=== PATIENT | female | born 1950 | race Caucasian/White ===

== ENCOUNTER 2018-01-06 16:05 | Emergency (ER) | payer MEDICARE, OTHER ==
[~2018-01-06] VITALS: Ht 167.6 cm; Wt 65.8 kg
[~2018-01-06 16:05] MED LIST: B COMPLETE1 EACH PO; B-121000 MCG PO; CARAFATE1 GM PO; FISH OIL 1,2001 EAC2; GARLIC OIL1000 MG; LOPERAMIDE2 MG PO; POTASSIUM GLUCO2 MEQ PO; PRAVASTATIN SOD80 MG PO; PROTONIX20 MG PO; PROZAC20 MG PO; TOPROL XL25 MG PO; VITAMIN C1000 M1 PO; VITAMIN D400 UNIT PO; VITAMIN E1000 UNI1; [UNRECOGNIZED DRUG - OTHER]
[2018-01-06] MEDS ORDERED: HYDROCODONE/APAP 10MG-325MG TAB PO ONE (16:30)
[2018-01-06] MEDS ORDERED: ONDANSETRON HCL 4 MG ORAL DISINTEGRATING TAB PO ONE (16:30)
[2018-01-06] MEDS ORDERED: TRAMADOL HCL 50 MG TAB PO ONE (16:30)
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
[2018-01-11] MEDS ORDERED: SYNTHROID100 MCG PO (11:09)
[2018-01-11] MEDS ORDERED: ASPIRIN325 MG PO (11:10)
== END 2018-01-06 18:52 | disposition home or self-care (01) ==
LOC: ER 16:05
DX: S52.515A Nondisplaced fracture of left radial styloid process, initial encounter for closed fracture (principal); V43.62XA Car passenger injured in collision with other type car in traffic accident, initial encounter; Y92.488 Other paved roadways as the place of occurrence of the external cause; I10 Essential (primary) hypertension; E03.9 Hypothyroidism, unspecified; K21.9 Gastro-esophageal reflux disease without esophagitis
CPT/HCPCS: 99284

== ENCOUNTER → 2018-01-12 | Day surgery (SDC) | payer OTHER, MEDICARE ==
[2018-01-11 11:24] LABS: BASOPHILS # (AUTO) 0.1 (0.0-0.1); EOSINOPHILS # (AUTO) 0.3 (0.0-0.4); HEMATOCRIT 38.8 % (34.2-44.1); HEMOGLOBIN 12.8 g/dL (12.0-16.0); LYMPHOCYTES # (AUTO) 2.4 (1.0-3.2); LYMPHOCYTES % 33.6 % (18.0-39.1); MEAN CORPUSCULAR HEMOGLOBIN 31.7 pg (28-32); MONOCYTES # (AUTO) 0.5 (0.2-0.8); MONOCYTES % 7.4 % (4.4-11.3); NEUTROPHILS # (AUTO) 3.7 (2.1-6.9); NEUTROPHILS % 53.6 % (38.7-80.0); PLATELET COUNT 226 x10e3/uL (140-360); RED BLOOD COUNT 4.04 x10e6/uL (3.6-5.1); RED CELL DISTRIBUTION WIDTH 12.4 % (11.7-14.4)
--- NOTE | 2018-01-11 16:47 | Diagnostic Imaging Report ---
EXAM: CHEST 2 VIEWS, PA and lateral DATE: 01/11/2018 11:02 AM Time stamp on exam: 11:06 AM INDICATION: Preoperative COMPARISON: None FINDINGS: LINES/TUBES: None LUNGS: No consolidations or edema. The lungs are hyperexpanded compatible with COPD. Basilar calcified granulomas noted on the lateral view. PLEURA: No effusions or pneumothorax. HEART AND MEDIASTINUM: Normal size and contour. Thoracic tortuosity and calcification. BONES AND SOFT TISSUES: Deformity of the proximal one third of the left humerus. IMPRESSION: No acute thoracic abnormality. Signed by: Dr. Reymundo Sena DO on 01/11/2018 4:43 PM
[~2018-01-12] MED LIST changes: +ASPIRIN325 MG PO; +BUPIVACAINE HCL 0.5% INJ 30 ML VIAL INJ ONE; +CEFAZOLIN SOD 2 GM/D5W 50ML 50 ML IV ONE; +DEXAMETHASONE SOD PHOS INJ 4 MG/ML VIAL ONE; +FENTANYL CITRATE/PF 100MCG/2 ML INJ ONE; +KETOROLAC TROMETHAMINE 30 MG/ML VIAL ONE; +LIDOCAINE HCL 2% LOCAL INJ 5 ML SDV VIAL INJ ONE; +MIDAZOLAM HCL 2 MG/2 ML VIAL ONE; +ONDANSETRON HCL INJ 2 MG/ML VIAL ONE; +PROPOFOL IV EMULSION 10 MG/ML 20 ML VIAL ONE; +SEVOFLURANE INHAL SOLN 250 ML PEN BTL ONE; +SYNTHROID100 MCG PO
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
[2018-01-12 15:20] VITALS: BP 136/68
--- NOTE | 2018-01-12 17:27 | Operative Report ---
DATE OF PROCEDURE: January 12, 2018 PREOPERATIVE DIAGNOSIS: Displaced left distal radius fracture. POSTOPERATIVE DIAGNOSIS: Displaced left distal radius fracture. PROCEDURE PERFORMED: The patient underwent a closed reduction and percutaneous pinning of the left distal radius fracture. BEAN SNAPPER: Suni Feldman. ANESTHESIA: General endotracheal intubation anesthesia. INTRAVENOUS FLUIDS: As per the anesthesia record. DESCRIPTION OF PROCEDURE: Ms. Shea was taken to the operating room and placed in the supine position on the operating table. Following the induction of general anesthesia as well as endotracheal intubation, the patient's left upper extremity was examined under anesthesia. She was found to have a gross deformity at the level of the left wrist joint. Fluoroscopic evaluation of the wrist joint demonstrated a displaced and dorsally angulated distal radius fracture. The patient's upper extremity was prepped and draped in standard surgical fashion. The case was begun by manipulating the wrist in a closed fashion. This resulted in acceptable realignment of the patient's injury. Two 0.062 K-wires were then inserted from distal to proximal, transfixing the fracture in its reduced position. The position of those K-wires as well as the reduction of the fracture site was then assessed using fluoroscopy and found to be appropriate. The pin sites were dressed sterilely, and the patient was provided a sugar-tong splint. The patient was then awakened and taken to the postanesthesia care unit in stable condition. Job#: [id number] EV
== END | disposition home or self-care (01) ==
LOC: OR 09:39
PROVIDERS: ATTEND Specialist
DX: S52.552A Other extraarticular fracture of lower end of left radius, initial encounter for closed fracture (principal); I10 Essential (primary) hypertension; V59.88XA Occupant (driver) (passenger) of pick-up truck or van injured in other specified transport accidents, initial encounter; Y92.413 State road as the place of occurrence of the external cause; Z88.6 Allergy status to analgesic agent; Z88.0 Allergy status to penicillin; Z91.018 Allergy to other foods; Z01.810 Encounter for preprocedural cardiovascular examination; Z01.812 Encounter for preprocedural laboratory examination; Z79.82 Long term (current) use of aspirin
CPT/HCPCS: 25606; 36415; 71046; 85025; J0690; J1100; J1885; J2001; J2250; J2405; J2704; 76000; C1713

== ENCOUNTER 2018-04-06 09:59 | Outpatient (RCR) | payer MEDICARE ==
[~2018-04-06 09:59] MED LIST changes: -BUPIVACAINE HCL 0.5% INJ 30 ML VIAL INJ ONE; -CEFAZOLIN SOD 2 GM/D5W 50ML 50 ML IV ONE; -DEXAMETHASONE SOD PHOS INJ 4 MG/ML VIAL ONE; -FENTANYL CITRATE/PF 100MCG/2 ML INJ ONE; -KETOROLAC TROMETHAMINE 30 MG/ML VIAL ONE; -LIDOCAINE HCL 2% LOCAL INJ 5 ML SDV VIAL INJ ONE; -MIDAZOLAM HCL 2 MG/2 ML VIAL ONE; -ONDANSETRON HCL INJ 2 MG/ML VIAL ONE; -PROPOFOL IV EMULSION 10 MG/ML 20 ML VIAL ONE; -SEVOFLURANE INHAL SOLN 250 ML PEN BTL ONE
== END 2018-04-14 ==
LOC: OT 09:59
PROVIDERS: ATTEND Specialist
DX: S52.502D Unspecified fracture of the lower end of left radius, subsequent encounter for closed fracture with routine healing (principal); M25.532 Pain in left wrist; M25.632 Stiffness of left wrist, not elsewhere classified; R53.1 Weakness
CPT/HCPCS: 97022 ×5; 97110 ×6; 97139; 97165; G8987; G8988

== ENCOUNTER → 2019-06-19 | Outpatient (CLI) | payer MEDICARE ==
[~2019-06-19] MED LIST changes: +CALCIUM CITRAT200 MG PO; +CORICIDIN COLD1 EACH PO; +SIMVASTATIN40 MG PO; +ULTRAM50 MG PO; +ZINC SULFATE220 MG PO
--- NOTE | 2019-06-19 11:09 | Diagnostic Imaging Report ---
EXAM: CT left shoulder WITHOUT contrast INDICATION: Shoulder pain. Displaced fracture of surgical neck of left humerus. Nonunion. COMPARISON: March 23, 2019 TECHNIQUE: Left shoulder was scanned utilizing a multidetector helical scanner without administration of IV contrast. Absence of intravenous contrast decreases sensitivity for detection of focal lesions and vascular pathology. Coronal and sagittal reformations were obtained. Routine protocol was performed. IV CONTRAST: None ORAL CONTRAST: None COMPLICATIONS: None RADIATION DOSE: Total DLP: 290 mGy*cm Estimated effective dose: (DLP x 0.015 x size factor) mSv CTDIvol has been reviewed. It is below the limits set by the Radiation Protocol Committee (RPC). Dose modulation, iterative reconstruction, and/or weight based adjustment of the mA/kV was utilized to reduce the radiation dose to as low as reasonably achievable. FINDINGS: LINES and TUBES: None. Incompletely healed comminuted mildly displaced proximal left humerus shaft fracture. New bone formation is seen on axial series 500 image 82 along the inferior margin of the fracture line. The fracture line is still visible. There is mild adjacent soft tissue swelling. Scattered degenerative changes are seen in the shoulder joint most pronounced at the glenohumeral joint with joint space loss, subchondral sclerosis and subchondral cystic change and peripheral osteophytosis. Less severe degenerative changes are seen at the acromioclavicular joint. Scattered degenerative change about the remaining visualized osseous structures. No osseous erosion. No radiopaque foreign body. The previously seen nonspecific 8.5 mm nodular density in the peripheral left lower lung was not imaged on today's exam. Impression: Incompletely healed comminuted mildly displaced proximal left humerus shaft fracture. The previously seen nonspecific 8.5 mm nodular density in the peripheral left lower lung was not imaged on today's exam. CT scan of the chest may be of benefit. Signed by: Dr. Vishnu Wilde M.D. on 06/19/2019 11:06 AM
== END ==
LOC: CT 08:28
PROVIDERS: ATTEND Specialist
DX: S42.222K 2-part displaced fracture of surgical neck of left humerus, subsequent encounter for fracture with nonunion (principal)

== ENCOUNTER → 2019-06-28 | Day surgery (SDC) | payer MEDICARE ==
[~2019-06-28] MED LIST changes: +ACETAMINOPHEN 1000 MG/100 ML IV PRN; +BACITRACIN 50,000 UNIT VIAL ONE; +BUPIVACAINE 0.5%/EPI 30 ML SDV INJ ONE; +CEFAZOLIN SOD 1 GM/NS 50ML 100 ML IV ONE; +CEFAZOLIN SOD 1 GM/NS 50ML 50 ML IV SCH; +DEXAMETHASONE SOD PHOS INJ 4 MG/ML VIAL ONE; +EPHEDRINE SULFATE INJ 50 MG/ML VIAL ONE; +EPINEPHRINE HCL 1:1000 1ML 1 MG/ML AMP ONE; +FENTANYL CITRATE/PF 100MCG/2 ML INJ ONE; +HYDROMORPHONE 0.2MG/ML-SOD CHL 30ML PCA SYRINGE IV PRN; +LIDOCAINE HCL 2% LOCAL 20 ML VIAL ONE; +LIDOCAINE HCL 2% LOCAL INJ 5 ML SDV VIAL INJ ONE; +MEPIVACAINE HCL 2% 20 ML VIAL ONE; +MIDAZOLAM HCL 2 MG/2 ML VIAL ONE; +NALOXONE HCL INJ 0.4 MG/ML AMP IV PRN; +ONDANSETRON HCL INJ 2MG/ML 2ML 2 MG/ML VIAL IV PRN; +ONDANSETRON HCL INJ 2MG/ML 2ML 2 MG/ML VIAL ONE; +PHENYLEPHRINE HCL 1% 10 MG/ML VIAL ONE; +PROPOFOL IV EMULSION 10 MG/ML 20 ML VIAL ONE; +SEVOFLURANE INHAL SOLN 250 ML PEN BTL ONE; +SODIUM CHLORIDE 0.9% 1000ML 1,000 ML IV SCH
--- OUTSIDE RECORDS SUMMARY | 2019-06-28 05:31 | XMS REPORT | Summary of Care ---
Author Author [facility] - Health Organization [facility] - Health Address Unknown Phone Unavailable Care Team Providers Care Supervisory Air Intercept Controller Name Role Phone Modesto Caba PCP Reason for Visit * Reason Comments LAB WORK Encounter Details Care Team Description Date Type Department Nito Conway, [facility] [address] [place] [address] Draw, Clc-Bls Lab Postoperative hypothyroidism 04/11/2019 Extrusion Technician [facility] Clinical Visit Laboratory, [address] [address] Allergies Comments Active Allergy Reactions Severity Noted Date [place] Oil Diarrhea 05/30/2018 Codeine Palpitations 05/30/2018 Morphine Nausea and/or 05/30/2018 Vomiting documented as of this encounter (statuses as of 04/11/2019) Medications End Date Status Medication Sig Dispensed Refills Start Date Active pantoprazole (PROTONIX) Take 40 mg by 0 40 mg EC tablet mouth 2 (two) times daily. Active ergocalciferol, vitamin Take by 0 D2, (VITAMIN D ORAL) mouth. Active metoprolol succinate XL Take 50 mg by 0 50 mg 24 hr tablet mouth daily. Active FLUoxetine 20 mg tablet Take 40 mg by 0 mouth daily. Active MULTIVITAMIN ORAL Take by 0 mouth. Active LEVOTHYROXINE 100 mcg TAKE 1 TABLET 30 tablet 0 tabletIndications: BY MOUTH ONCE 9 Postoperative DAILY IN THE hypothyroidism MORNING Active simvastatin 40 mg tablet Take 40 mg by 0 mouth at bedtime. Active calcium citrate/vitamin Take by 0 D3 (CALCIUM CITRATE + D mouth. ORAL) Active ASPIRIN ORAL Take by 0 mouth. documented as of this encounter (statuses as of 04/11/2019) Active Problems Problem Noted Date Postoperative hypothyroidism 05/30/2018 History of thyroid cancer 05/30/2018 Pure hypercholesterolemia 05/30/2018 Osteopenia of both hips 05/30/2018 documented as of this encounter (statuses as of 04/11/2019) Social History Date Tobacco Use Types Packs/Day Years Used Never Smoker Smokeless Tobacco: Never Used Drinks/Week oz/Week Comments Alcohol Use No Sex Assigned at Date Recorded Not on file Industry Job Start Date Occupation Not on file Not on file Not on file Travel End Travel History Travel Start No recent travel history available. documented as of this encounter Last Filed Vital Signs Not on filedocumented in this encounter Plan of Treatment Date/Time Name Type Priority Associated Diagnoses 04/11/2019 10:13 AM MANAGER PHARMACEUTICAL THYROID STIMULATING LAB Routine Postoperative HORMONE hypothyroidism Health Maintenance Due Date Last Done Comments HEPATITIS C (HCV) SCREEN 1950 DTaP,Tdap,and Td Vaccines 1962 (1 - Tdap) Breast Cancer Screening 1991 (MAMMOGRAM) COLONOSCOPY 2001 Zoster Recombinant 2001 Vaccine (SHINGRIX) (1 of 2) Medicare Wellness Visit 02/19/2016 PNEUMOCOCCAL VACCINES 65+ 02/19/2016 (1 of 2 - PCV13) INFLUENZA VACCINE (#1) 2018 Osteoporosis Screening 06/08/2028 06/08/2018 documented as of this encounter Results Not on filedocumented in this encounter Visit Diagnoses Diagnosis Postoperative hypothyroidism Postsurgical hypothyroidism documented in this encounter Insurance Type Payer Benefit Subscriber ID Effective Phone Address Plan / Dates Group Medicare Adv O [facility] [id number] 2018-P MANAGED MEDICARE [facility]ALTHCARE [facility] H[facility] documented as of this encounter
--- OUTSIDE RECORDS SUMMARY | 2019-06-28 05:31 | XMS REPORT | Summary of Care ---
Author Author [facility] - Health Organization [facility] - Health Address Unknown Phone Unavailable Care Team Providers Care Therapeutic Recreation Director Name Role Phone Modesto Caba PCP Reason for Visit * Reason Comments LAB Encounter Details Care Team Description Date Type Department Nito Conway, [facility] [address] [place] [address] LAB 04/13/2019 Refill [facility] Endocrinology, [address] [address] Allergies Comments Active Allergy Reactions Severity Noted Date [place] Oil Diarrhea 05/30/2018 Codeine Palpitations 05/30/2018 Morphine Nausea and/or 05/30/2018 Vomiting documented as of this encounter (statuses as of 04/13/2019) Medications End Date Status Medication Sig Dispensed [...] MULTIVITAMIN ORAL Take by 0 mouth. Active simvastatin 40 mg tablet Take 40 mg by 0 mouth at bedtime. Active calcium citrate/vitamin Take by 0 D3 (CALCIUM CITRATE + D mouth. ORAL) Active ASPIRIN ORAL Take by 0 mouth. Active levothyroxine 112 mcg Take 1 tablet 30 tablet 2 tabletIndications: by mouth 0 Postoperative every hypothyroidism morning. 04/13/2019 Discontinued (Dose adjustment) LEVOTHYROXINE 100 mcg TAKE 1 TABLET 30 tablet 0 tabletIndications: BY MOUTH ONCE 9 Postoperative DAILY IN THE hypothyroidism MORNING documented as of this encounter (statuses as of 04/13/2019) Active Problems Problem Noted Date Postoperative hypothyroidism 05/30/2018 History of thyroid cancer 05/30/2018 Pure hypercholesterolemia 05/30/2018 Osteopenia of both hips 05/30/2018 documented as of this encounter (statuses as of 04/13/2019) Social History Date Tobacco Use Types Packs/Day [...] filedocumented in this encounter Plan of Treatment Care Team Description Date Type Specialty Nito Conway, [facility] [address] [place] [phone] 10/13/2019 Office Visit Endocrinology Diabetes & Metabolism Order Schedule Name Type Priority Associated Diagnoses Expected: 05/13/2019, Expires: 08/12/2019 THYROID STIMULATING LAB Routine Postoperative HORMONE hypothyroidism [...] this encounter Visit Diagnoses Diagnosis Postoperative hypothyroidism - Primary Postsurgical hypothyroidism documented in this encounter Insurance Type Payer Benefit Subscriber ID Effective Phone Address Plan / Dates Group Medicare Adv HMO [employer] [facility] [id number] 2018-P MANAGED MEDICARE HEALTHCARE resent MEDICARE ADV HMO documented as of this encounter
--- OUTSIDE RECORDS SUMMARY | 2019-06-28 05:31 | XMS REPORT | Summary of Care ---
Author Author [facility] - Health Organization [facility] - Health Address Unknown Phone Unavailable Care Team Providers Care Flat Sheet Maker Name Role Phone Modesto Caba PCP Reason for Visit * Reason Comments Follow-up pt confirm all meds and pharmacy Thyroid Problem Encounter Details Care Team Description Date Type Department Emily Menendez MD [address] [place] [address] Nito Conway, [facility] [address] [place] [address] Postoperative hypothyroidism (Primary Dx); History of thyroid cancer 04/11/2019 Office Visit [facility] Endocrinology, [address] [address] Allergies Comments Active Allergy Reactions Severity Noted Date [place] Oil Diarrhea 05/30/2018 Codeine Palpitations 05/30/2018 Morphine [...] Active ASPIRIN ORAL Take by 0 mouth. 04/11/2019 Discontinued (Dose adjustment) pravastatin 80 mg Take 1 tablet 90 tablet 1 tabletIndications: Pure by mouth at 9 hypercholesterolemia bedtime. documented as of this encounter (statuses as [...] of this encounter Last Filed Vital Signs Reading Time Taken Comments Vital Sign 133/83 04/11/2019 9:36 AM PLUMBER PIPE FITTING Blood Pressure 75 04/11/2019 9:36 AM PLUMBER PIPE [employer]TING Pulse - - Temperature - - Respiratory Rate 98% 04/11/2019 9:36 AM PLUMBER PIPE FITTING Oxygen Saturation - - Inhaled Oxygen Concentration 71.2 kg (157 lb) 04/11/2019 9:36 AM PLUMBER PIPE FITTING Weight 164.5 cm (5' 4.75") 04/11/2019 9:36 AM PLUMBER PIPE FITTING Height 26.33 04/11/2019 9:36 AM PLUMBER PIPE FITTING Body Mass Index documented in this encounter Progress Notes * Nito Conway, CHERYL - 04/11/2019 9:30 AM PLUMBER PIPE FITTING Cc: Chief Complaint Patient presents with Follow-up pt confirm all meds and pharmacy Thyroid Problem HPI Katja Shea is a 69 year old female here for follow up Hypothyroidism:s/p thyroidectomy in 1997 for multinodular goiter.On levothyroxi ne 100mcg daily,ran out of it 2 weeks back and she started taking levothyroxine 112mcg from her previous prescription. reports compliance. Denies any fatigue, hair loss, brittle nails, or decreased perspiration. Allergies Katja is allergic to castor oil; codeine; and morphine. Medications Outpatient Medications Prior to Visit Medication Sig Dispense Refill ASPIRIN ORAL Take by mouth. calcium citrate/vitamin D3 (CALCIUM CITRATE + D ORAL) Take by mouth. simvastatin 40 mg tablet Take 40 mg by mouth at bedtime. LEVOTHYROXINE 100 mcg tablet TAKE 1 TABLET BY MOUTH ONCE DAILY IN THE MORNIN G 30 tablet 0 ergocalciferol, vitamin D2, (VITAMIN D ORAL) Take by mouth. FLUoxetine 20 mg tablet Take 40 mg by mouth daily. metoprolol succinate XL 50 mg 24 hr tablet Take 50 mg by mouth daily. MULTIVITAMIN ORAL Take by mouth. pantoprazole (PROTONIX) 40 mg EC tablet Take 40 mg by mouth 2 (two) times da alexander. pravastatin 80 mg tablet Take 1 tablet by mouth at bedtime. 90 tablet 1 No facility-administered medications prior to visit. Histories Past Medical History: Diagnosis Date Cancer Depression Hyperlipidemia Hypertension Past Surgical History: Procedure Laterality Date HERNIA REPAIR HYSTERECTOMY THYROIDECTOMY TONSILLECTOMY Social History Socioeconomic History Marital status: Spouse name: Not on file Number of children: Not on file Years of education: Not on file Highest education level: Not on file Occupational History Not on file Social Needs Financial resource strain: Not on file Food insecurity: Worry: Not on file Inability: Not on file Transportation needs: Medical: Not on file Non-medical: Not on file Tobacco Use Smoking status: Never Smoker Smokeless tobacco: Never Used Substance and Sexual Activity Alcohol use: No Drug use: No Sexual activity: Not on file Lifestyle Physical activity: Days per week: Not on file Minutes per session: Not on file Stress: Not on file Relationships Social connections: Talks on phone: Not on file Gets together: Not on file Attends nondenominational service: Not on file Active member of club or organization: Not on file Attends meetings of clubs or organizations: Not on file Relationship status: Not on file Intimate partner violence: Fear of current or ex partner: Not on file Emotionally abused: Not on file Physically abused: Not on file Forced sexual activity: Not on file Other Topics Concern Not on file Social History Narrative Not on file History reviewed. No pertinent family history. Review of Systems Constitutional:negative. Eyes: no recent changes Neck: negative Cardiovascular: negative. Respiratory: negative Genitourinary: negative Neuro: negative Endocrine: negative. Vital Signs BP 133/83 (BP Location: Right arm, Patient Position: Sitting, BP CUFF SIZE: Adul t Large) | Pulse 75 | Ht 5' 4.75" (1.645 m) | Wt 157 lb (71.2 kg) | SpO2 98% | BMI 26.33 kg/m Physical Exam Constitutional: oriented to person, place, and time.appears well-developed and well-nourished. Eyes: Pupils are equal, round, and reactive to light. Conjunctivae and EOM are n ormal. No scleral icterus. Lymph: No JVD present. No tracheal deviation present. No thyromegaly present. Cardiovascular: Normal rate, regular rhythm, normal heart sounds and intact dist al pulses. No murmur heard. Pulmonary/Chest: Effort normal and breath sounds normal. No respiratory distress . no wheezes, no rales Assessment/Plan Postoperative hypothyroidism (primary encounter diagnosis) Plan: THYROID STIMULATING HORMONE - will refill levothyroxine depending on lab results from today - f/u in 6 months Appropriate plan of care, desired health behaviors, goals and medications discus sed with patient and educational resources and self-management tools provided, a s applicable. Patient/family/guardian voice understanding. Barriers to adherence: none Ability to manage care: Good As necessary, prescribed medications and potential significant medication side e ffects or medication interactions were discussed with the patient and pt will le t me know if any occur. Call or return to clinic prn if these symptoms worsen or fail to improve as anti cipated. Call or report to ER if symptoms should symptoms progress or worsen. The patient indicates understanding of these issues and agrees with the plan. AVS printed and given to patient/family/guardian . BER PIPE FITTING documented in this encounter Plan of Treatment Care Team Description Date Type Specialty Draw, Clc-Bls Lab 04/11/2019 Travel Pt Phlebotomy Visit Order Schedule Name Type Priority Associated Diagnoses Expected: 04/11/2019, Expires: 05/12/2019 THYROID STIMULATING LAB Routine Postoperative HORMONE hypothyroidism [...] Diagnosis Postoperative hypothyroidism - Primary Postsurgical hypothyroidism History of thyroid cancer Personal history of malignant neoplasm of thyroid documented in this encounter Insurance Type Payer Benefit Subscriber ID Effective Phone Address Plan / Dates Group Medicare Adv O [employer] [facility] [id number] 2018-P MANAGED MEDICARE HEALTHCARE resent MEDICARE ADV O documented as of this encounter
--- OUTSIDE RECORDS SUMMARY | 2019-06-28 05:31 | XMS REPORT | Summary of Care ---
Author Author [facility] - Health Organization [facility] - Health Address Unknown Phone Unavailable Care Team Providers Care Seafood Fisherman Name Role Phone Modesto Caba PCP Reason for Visit * Reason Comments LAB WORK Encounter Details Care Team Description Date Type Department Nito Conway, [facility] [address] [place] [address] Draw, Clc-Bls Lab Postoperative hypothyroidism 05/29/2019 Non Categorical Preschool Teacher [facility] Clinical Visit Laboratory, [address] [phone] Allergies Comments Active Allergy Reactions Severity Noted Date [place] Oil Diarrhea 05/30/2018 Codeine Palpitations 05/30/2018 Morphine Nausea and/or 05/30/2018 Vomiting documented as of this encounter (statuses as of 05/29/2019) Medications End Date Status Medication Sig Dispensed [...] by mouth 0 Postoperative every hypothyroidism morning. documented as of this encounter (statuses as of 05/29/2019) Active Problems Problem Noted Date Postoperative hypothyroidism 05/30/2018 History of thyroid cancer 05/30/2018 Pure hypercholesterolemia 05/30/2018 Osteopenia of both hips 05/30/2018 documented as of this encounter (statuses as of 05/29/2019) Social History Date Tobacco Use Types Packs/Day [...] Team Description Date Type Specialty Nito Conway, [facility] [address] [place] [phone] 10/13/2019 Office Visit Endocrinology Diabetes & Metabolism Health Maintenance Due Date Last Done Comments [...] Plan / Dates Group Medicare Adv O Magine sambaash [id number] 2018-P MANAGED MEDICARE HEALTHCARE resent MEDICARE ADV HMO documented as of this encounter
--- OUTSIDE RECORDS SUMMARY | 2019-06-28 05:31 | XMS REPORT | Summary of Care ---
Author Author [facility] - Health Organization [facility] - Health Address Unknown Phone Unavailable Care Team Providers Care Fashion Director Party Plan Sales Name Role Phone [place] Caba PCP Reason for Visit * Reason Comments Follow-up pt confirm all meds and pharmacy Thyroid Problem Encounter Details Care Team Description Date Type Department Emily Menendez MD [address] [place] [id number] Nito Conway, [facility] [id number] [place] [address] Postoperative hypothyroidism (Primary Dx); History of thyroid cancer 04/11/[address] [facility] Endocrinology, [address] [address] Allergies Comments Active Allergy Reactions Severity Noted Date [employer] [place] [employer] Diarrhea 05/30/2018 Codeine Palpitations 05/30/2018 Morphine [...] Comments Vital Sign 133/83 04/11/2019 9:36 AM LEAD POURER Blood Pressure 75 04/11/2019 9:36 AM LEAD POURER Pulse - - Temperature - - Respiratory Rate 98% 04/11/2019 9:36 AM LEAD POURER Oxygen Saturation - - Inhaled Oxygen Concentration 71.2 kg (157 lb) 04/11/2019 9:36 AM LEAD POURER Weight 164.5 cm (5' 4.75") 04/11/2019 9:36 AM LEAD POURER Height 26.33 04/11/2019 9:36 AM LEAD POURER Body Mass Index documented in this encounter Progress Notes * Nito Conway, CHERYL - 04/11/2019 9:30 AM LEAD POURER Cc: Chief Complaint Patient presents with Follow-up [...] file Gets together: Not on file Attends pentecostal service: Not on file Active member of [...] AVS printed and given to patient/family/guardian . POURER documented in this encounter Plan of Treatment Care Team Description Date Type Specialty Nito Conway FNP [address] [place] [address] Draw, Clc-Bls Lab Arrived 04/11/2019 [place]ane Ladle Person Phlebotomy Visit Order Schedule Name Type Priority [...] Plan / Dates Group Medicare Adv O Perform[employer]ard [facility] [id number] 2018-P MANAGED MEDICARE HEALTHCARE resent MEDICARE ADV O documented as of this encounter
[2019-06-28 06:21] LABS: BASOPHILS # (AUTO) 0.1 (0.0-0.1); BASOPHILS % 0.8 % (0.0-1.0); EOSINOPHILS # (AUTO) 0.2 (0.0-0.4); EOSINOPHILS % 2.6 % (0.0-6.0); HEMATOCRIT 40.6 % (34.2-44.1); HEMOGLOBIN 12.7 g/dL (12.0-16.0); LYMPHOCYTES # (AUTO) 2.2 (1.0-3.2); LYMPHOCYTES % 30.1 % (18.0-39.1); MEAN CORPUSCULAR HEMOGLOBIN 30.3 pg (28-32); MEAN CORPUSCULAR HGB CONC 31.3 g/dL (31-35); MEAN CORPUSCULAR VOLUME 96.9 fL (81-99); MONOCYTES # (AUTO) 0.6 (0.2-0.8); MONOCYTES % 8.3 % (4.4-11.3); NEUTROPHILS # (AUTO) 4.2 (2.1-6.9); NEUTROPHILS % 58.1 % (38.7-80.0); PLATELET COUNT 222 x10e3/uL (140-360); RED BLOOD COUNT 4.19 x10e6/uL (3.6-5.1); RED CELL DISTRIBUTION WIDTH 13.2 % (11.7-14.4)
--- NOTE | 2019-06-28 07:49 | Diagnostic Imaging Report ---
EXAMINATION: CHEST 2 VIEWS INDICATION: Preop shoulder surgery COMPARISON: Left shoulder CT 06/19/2019 FINDINGS: TUBES and LINES: None. LUNGS: Normal lung volumes. A 1.2 cm nodular opacity in the right midlung. No consolidations. PLEURA: No pleural effusion or pneumothorax. HEART AND MEDIASTINUM: The cardiomediastinal silhouette is unremarkable. BONES AND SOFT TISSUES: Partially visualized left proximal humeral fracture. Soft tissues are unremarkable. UPPER ABDOMEN: No free air under the diaphragm. IMPRESSION: Partially visualized left proximal humeral fracture and degenerative changes in the left shoulder. An indeterminate 1.2 cm nodular opacity in the right midlung is likely a benign calcified granuloma, can be further characterized with nonemergent chest CT. Signed by: Jose J Celestin DO on 06/28/2019 7:46 AM
[2019-06-28 10:50] VITALS: BP 118/63
--- NOTE | 2019-07-07 17:08 | Operative Report ---
DATE OF PROCEDURE: 06/28/2019 SURGEON: Joshua Hurtado MD PREOPERATIVE DIAGNOSIS: Left proximal humerus nonunion. POSTOPERATIVE DIAGNOSIS: Left proximal humerus nonunion. OPERATIONS/PROCEDURES PERFORMED: 1. The patient underwent a takedown of the left proximal humerus nonunion. 2. Open reduction and internal fixation of left proximal humerus nonunion. 3. Allograft bone graft in the left proximal humerus. RESIDENTIAL TREATMENT COUNSELOR: There was no medical office assistant instructor. ANESTHESIA: General endotracheal intubation anesthesia. IV FLUIDS: Per the anesthesia record. BRIEF DESCRIPTION OF THE PATIENT'S OPERATIVE PROCEDURE: Ms. Shea was taken to the operating room and placed in supine position on the operating table. Following induction of anesthesia as well as endotracheal intubation, the patient's left upper extremity was examined under anesthesia. She had swelling about the left upper arm. Fluoroscopic evaluation of left upper arm demonstrated a nonunion of the left proximal humerus. The patient's upper extremity was prepped and draped in standard surgical fashion. Standard deltopectoral approach was then taken. The incision was carried through skin and subcutaneous tissues. The incision was deepened to the deltopectoral groove. The patient had a poorly formed cephalic vein. This was mobilized without difficulty. The pectoralis muscle was elevated from its insertion into the humerus. The long head of the biceps was found to be torn and scarred into the adjacent soft tissues. The dissection was carried proximally and the patient's fracture site was easily identified. There was visible motion at the level of the fracture site. The attempted callus formation was debrided. The fracture fragments were freed. A drill was used to gain access to the medullary canal in the humeral shaft as well as into the proximal aspect of the humerus. The fracture was reduced and slightly shortened creating greater bony overlap. A locking plate was then used and affixed to the humerus with combinations of cortical and locking screws. Fluoroscopic evaluation was demonstrated acceptable realignment of the injury. The wound was copiously irrigated. The patient's nonunion site was copiously grafted with allograft bone graft. The shoulder was placed through range of motion and found to be stable and the fracture moved as one. The deltopectoral interval was reapproximated and closed with 0 Vicryl suture in a [id number] fashion. Remaining soft tissues were closed in a multilayer fashion. Steri-Strips were applied. The patient was provided a sterile dressing and shoulder immobilizer, awakened, and taken to postanesthesia care unit in stable condition. MD ARELIS Bauman/KRISTINE /[id number]
== END | disposition home or self-care (01) ==
LOC: OR 05:27
PROVIDERS: ATTEND Specialist
DX: S42.222K 2-part displaced fracture of surgical neck of left humerus, subsequent encounter for fracture with nonunion (principal); I10 Essential (primary) hypertension; E03.9 Hypothyroidism, unspecified; K21.9 Gastro-esophageal reflux disease without esophagitis; I34.1 Nonrheumatic mitral (valve) prolapse; X58.XXXA Exposure to other specified factors, initial encounter; Z88.6 Allergy status to analgesic agent; Z88.0 Allergy status to penicillin; Z88.8 Allergy status to other drugs, medicaments and biological substances; Z79.82 Long term (current) use of aspirin
CPT/HCPCS: 24430; 36415; 71046; 85025; 93005; C1713 ×8; J0171; J0670; J0690; J1100; J2001 ×2; J2250; J2370; J2405; J2704; J3010

== ENCOUNTER → 2019-12-27 | Outpatient (CLI) | payer MEDICARE ==
[~2019-12-27] MED LIST changes: -ACETAMINOPHEN 1000 MG/100 ML IV PRN; -BACITRACIN 50,000 UNIT VIAL ONE; -BUPIVACAINE 0.5%/EPI 30 ML SDV INJ ONE; -CEFAZOLIN SOD 1 GM/NS 50ML 100 ML IV ONE; -CEFAZOLIN SOD 1 GM/NS 50ML 50 ML IV SCH; -DEXAMETHASONE SOD PHOS INJ 4 MG/ML VIAL ONE; -EPHEDRINE SULFATE INJ 50 MG/ML VIAL ONE; -EPINEPHRINE HCL 1:1000 1ML 1 MG/ML AMP ONE; -FENTANYL CITRATE/PF 100MCG/2 ML INJ ONE; -HYDROMORPHONE 0.2MG/ML-SOD CHL 30ML PCA SYRINGE IV PRN; -LIDOCAINE HCL 2% LOCAL 20 ML VIAL ONE; -LIDOCAINE HCL 2% LOCAL INJ 5 ML SDV VIAL INJ ONE; -MEPIVACAINE HCL 2% 20 ML VIAL ONE; -MIDAZOLAM HCL 2 MG/2 ML VIAL ONE; -NALOXONE HCL INJ 0.4 MG/ML AMP IV PRN; -ONDANSETRON HCL INJ 2MG/ML 2ML 2 MG/ML VIAL IV PRN; -ONDANSETRON HCL INJ 2MG/ML 2ML 2 MG/ML VIAL ONE; -PHENYLEPHRINE HCL 1% 10 MG/ML VIAL ONE; -PROPOFOL IV EMULSION 10 MG/ML 20 ML VIAL ONE; -SEVOFLURANE INHAL SOLN 250 ML PEN BTL ONE; -SODIUM CHLORIDE 0.9% 1000ML 1,000 ML IV SCH
--- NOTE | 2019-12-27 12:37 | Diagnostic Imaging Report ---
TECHNIQUE: Magnetic resonance imaging of the RIGHT KNEE was performed WITHOUT injected contrast. HISTORY: Right knee pain COMPARISON: None available. FINDINGS: LIGAMENTS AND TENDONS: ACL: Degeneration with attenuation. Spurring in the intercondylar notch. PCL: Intact Collateral ligaments: Intact Iliotibial band: Unremarkable Popliteal tendon: Intact Extensor mechanism: Intact JOINT: Menisci: Medial: Complex tearing of the body and posterior horn Lateral: Intact Articular Cartilage: Medial Compartment: Diffuse high-grade cartilage loss with areas of full-thickness erosion and subchondral edema. Lateral Compartment: Diffuse low-grade cartilage loss with areas of intermediate grade fissuring. Patellofemoral Compartment: Diffuse high-grade cartilage loss with areas of full-thickness erosion and subchondral edema. Fragmented suprapatellar osteophytes. Joint Fluid: Moderate joint effusion. BONE: No focal or infiltrative bone marrow replacing abnormality. No acute fracture. SOFT TISSUES: Otherwise, unremarkable. 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 Medial meniscus complex tearing to the body and posterior horn Signed by: Dr. Cooper Chappell M.D. on 12/27/2019 12:34 PM
== END ==
LOC: MRI 10:24
PROVIDERS: ATTEND Specialist
DX: S83.221A Peripheral tear of medial meniscus, current injury, right knee, initial encounter (principal); M17.11 Unilateral primary osteoarthritis, right knee

== ENCOUNTER → 2020-01-26 | Day surgery (SDC) | payer MEDICARE ==
[2020-01-23 12:15] LABS: BASOPHILS # (AUTO) 0.1 (0.0-0.1); EOSINOPHILS # (AUTO) 0.1 (0.0-0.4); EOSINOPHILS % 1.9 % (0.0-6.0); HEMATOCRIT 39.5 % (34.2-44.1); HEMOGLOBIN 12.5 g/dL (12.0-16.0); LYMPHOCYTES % 27.1 % (18.0-39.1); MEAN CORPUSCULAR HEMOGLOBIN 30.8 pg (28-32); MEAN CORPUSCULAR HGB CONC 31.6 g/dL (31-35); MEAN CORPUSCULAR VOLUME 97.3 fL (81-99); MONOCYTES # (AUTO) 0.6 (0.2-0.8); MONOCYTES % 8.8 % (4.4-11.3); NEUTROPHILS # (AUTO) 4.4 (2.1-6.9); NEUTROPHILS % 60.2 % (38.7-80.0); PLATELET COUNT 235 x10e3/uL (140-360); RED BLOOD COUNT 4.06 x10e6/uL (3.6-5.1); RED CELL DISTRIBUTION WIDTH 14.5 % (11.7-14.4)
[~2020-01-26] MED LIST changes: +BUPIVACAINE HCL 0.5% INJ 30 ML VIAL INJ ONE; +CEFAZOLIN SOD 1 GM/NS 50ML 0 ML IV ONE; +CLINDAMYCIN PHOS 900MG/ 50ML 50 ML IV ONE; +DEXAMETHASONE SOD PHOS INJ 4 MG/ML VIAL ONE; +EUTHYROX112 MCG; +FENTANYL CITRATE/PF 100MCG/2 ML INJ ONE; +LIDOCAINE HCL 2% LOCAL INJ 5 ML SDV VIAL INJ ONE; +MIDAZOLAM HCL 2 MG/2 ML VIAL ONE; +ONDANSETRON HCL INJ 2MG/ML 2ML 2 MG/ML VIAL ONE; +PROPOFOL IV EMULSION 10 MG/ML 20 ML VIAL ONE; +SEVOFLURANE INHAL SOLN 250 ML PEN BTL ONE
[2020-01-26 14:15] VITALS: BP 142/74
--- NOTE | 2020-02-07 15:37 | Operative Report ---
DATE OF PROCEDURE: 01/26/2020 SURGEON: Joshua Hurtado MD PREOPERATIVE DIAGNOSES: Right knee medial meniscus tear, right knee degenerative joint disease of the knee. POSTOPERATIVE DIAGNOSES: Right knee medial meniscus tear, right knee degenerative joint disease of the knee. OPERATIONS AND PROCEDURES PERFORMED: The patient underwent right knee examination under anesthesia. Right knee arthroscopy, right knee partial medial meniscectomy, right knee chondroplasty of the patella, the trochlea, the medial femoral condyle, the medial tibial plateau of the lateral femoral condyle and lateral tibial plateau. ANESTHESIA: General endotracheal intubation anesthesia. IV FLUIDS: Per the anesthesia record. BRIEF DISCUSSION OF THE PATIENT'S OPERATIVE PROCEDURE: Ms. Shea was taken to the operating room and placed in the supine position on the operating table. Following induction of general anesthesia as well as endotracheal intubation, the patient's right lower extremity was examined under anesthesia. She was found to have mild effusion within the knee joint, but otherwise ligamentously stable knee. The patient's lower extremity was prepped and draped in standard surgical fashion. A two-port technique was used to provide this patient arthroscopic evaluation of the knee joint. Examination of suprapatellar pouch, medial and lateral gutters found no evidence of loose bodies. There was, however, evidence of chondromalacia of the patellar and trochlear surfaces. The scope was advanced to the medial compartment. Examination of the medial compartment demonstrated marked chondromalacia of the articulating surface. There was a torn at the medial meniscus. A combination of body forceps and motorized shaver were used to resect the torn portion of the meniscus. Chondroplasties of the medial femoral condyle and medial tibial plateau were performed at this time. Scope was then advanced to the intercondylar notch and the anterior cruciate ligament was identified and found to be intact. Scope was then advanced into the lateral compartment and chondromalacia was identified at the articulating surfaces. A chondroplasty of the lateral femoral condyle and lateral tibial plateau was performed at this time. Scope was then advanced to the patellar pouch and chondroplasties of the patella and trochlea were performed. The knee was then deflated with sterile normal saline. The portal sites were closed using 4-0 nylon suture. The portal sites as well as the knee itself were then injected with 0.5% Marcaine with epinephrine. Sterile dressings were applied. The patient was awakened and taken to the postanesthesia care unit in stable condition. MD ARELIS Bauman/KRISTINE /[id number]
--- NOTE | 2020-02-12 09:09 | Operative Report ---
DATE OF PROCEDURE: 01/26/2020 SURGEON: Joshua Hurtado MD PREOPERATIVE DIAGNOSES: 1. Right knee medial meniscus tear. 2. Right knee degenerative joint disease of the knee. POSTOPERATIVE DIAGNOSES: 1. Right knee medial meniscus tear. 2. Right knee degenerative joint disease of the knee. OPERATION PROCEDURE PERFORMED: 1. The patient underwent a right knee examination under anesthesia. 2. Right knee arthroscopy. 3. Right knee partial medial meniscectomy. 4. Right knee chondroplasty of the patella, trochlea, the medial femoral condyle, the medial plateau. The lateral femoral condyle and lateral tibial plateau. RN HOME CARE: None. ANESTHESIA: General endotracheal intubation anesthesia. IV FLUIDS: Per the anesthesia record. COMPLICATIONS: None. BRIEF DESCRIPTION OF THE PATIENT'S OPERATIVE PROCEDURE: Ms. Shea was taken to the operating room and placed in the supine position on the operating table. Following induction of general anesthesia as well as endotracheal intubation, the patient's right lower extremity was examined under anesthesia. She was found to have a mild effusion in the knee joint. Her ligaments were stable. The patient's lower extremity was prepped and draped in standard surgical fashion. A two-port technique used to provide this patient arthroscopic evaluation of the knee joint. Examination of the suprapatellar pouch, medial and lateral gutters found no evidence of loose bodies. There was however evidence of chondromalacia of the patellar and trochlear surfaces. The scope was advanced to the medial compartment. Examination of the medial compartment demonstrated a torn medial meniscus. There was also chondromalacia of the medial femoral condyle and medial tibial plateau. A combination of biting forceps and motorized shaver used to resect the torn portion of meniscus. Chondroplasties of the medial femoral condyle and medial tibial plateau performed at this time. Scope was then advanced to the intercondylar notch, the anterior cruciate ligament was identified and found to be intact. Scope was advanced to the lateral compartment and chondromalacia articulating surfaces were encountered. A chondroplasty of the lateral femoral condyle and lateral tibial plateau was performed at this time. Scope was then advanced in suprapatellar pouch and chondroplasties of the patellar and trochlear performed. The knee was deflated with sterile normal saline. The portal sites were closed using 4-0 nylon suture. The portal sites as well as knee itself were injected with 0.5% Marcaine with epinephrine. Sterile dressings were applied. The patient was awakened, taken to postanesthesia care unit in stable condition. MD ARELIS Bauman/KRISTINE /[id number]
== END | disposition home or self-care (01) ==
LOC: OR 09:56
PROVIDERS: ATTEND Specialist
DX: S83.221A Peripheral tear of medial meniscus, current injury, right knee, initial encounter (principal); M17.11 Unilateral primary osteoarthritis, right knee; M22.41 Chondromalacia patellae, right knee; R00.1 Bradycardia, unspecified; I45.10 Unspecified right bundle-branch block; I10 Essential (primary) hypertension; E03.9 Hypothyroidism, unspecified; W01.0XXA Fall on same level from slipping, tripping and stumbling without subsequent striking against object, initial encounter; Y92.015 Private garage of single-family (private) house as the place of occurrence of the external cause; Z88.6 Allergy status to analgesic agent; Z88.8 Allergy status to other drugs, medicaments and biological substances; Z01.810 Encounter for preprocedural cardiovascular examination; Z01.812 Encounter for preprocedural laboratory examination; Z20.828 Contact with and (suspected) exposure to other viral communicable diseases; Z79.82 Long term (current) use of aspirin; Z85.850 Personal history of malignant neoplasm of thyroid
CPT/HCPCS: 29881; 36415; 85025; 93005; J1100; J2001; J2250; J2405; J2704; J3010; U0002; J0690

== ENCOUNTER 2020-03-05 11:00 | Outpatient (RCR) | payer MEDICARE ==
[~2020-03-05 11:00] MED LIST changes: -BUPIVACAINE HCL 0.5% INJ 30 ML VIAL INJ ONE; -CEFAZOLIN SOD 1 GM/NS 50ML 0 ML IV ONE; -CLINDAMYCIN PHOS 900MG/ 50ML 50 ML IV ONE; -DEXAMETHASONE SOD PHOS INJ 4 MG/ML VIAL ONE; -FENTANYL CITRATE/PF 100MCG/2 ML INJ ONE; -LIDOCAINE HCL 2% LOCAL INJ 5 ML SDV VIAL INJ ONE; -MIDAZOLAM HCL 2 MG/2 ML VIAL ONE; -ONDANSETRON HCL INJ 2MG/ML 2ML 2 MG/ML VIAL ONE; -PROPOFOL IV EMULSION 10 MG/ML 20 ML VIAL ONE; -SEVOFLURANE INHAL SOLN 250 ML PEN BTL ONE
== END 2020-03-14 ==
LOC: PT 11:00
PROVIDERS: ATTEND Specialist
DX: M17.11 Unilateral primary osteoarthritis, right knee (principal); M25.561 Pain in right knee; M25.661 Stiffness of right knee, not elsewhere classified; R26.89 Other abnormalities of gait and mobility

== ENCOUNTER 2020-04-12 12:48 | Outpatient (RCR) | payer MEDICARE | END 2020-04-14 | LOC: PT 12:48 | PROVIDERS: ATTEND Specialist | DX: M25.561 Pain in right knee (principal); M25.661 Stiffness of right knee, not elsewhere classified; R26.89 Other abnormalities of gait and mobility | CPT/HCPCS: 97139 ==

== ENCOUNTER 2020-04-15 09:24 | Outpatient (RCR) | payer MEDICARE | END 2020-05-12 | LOC: PT 09:24 | PROVIDERS: ATTEND Specialist | DX: M25.561 Pain in right knee (principal); M25.661 Stiffness of right knee, not elsewhere classified; R26.89 Other abnormalities of gait and mobility ==